=== PATIENT | male | born 1955 | race Caucasian/White ===

== ENCOUNTER 2024-01-06 13:28 | Emergency (ER) | payer OTHER, SELFPAY ==
[2024-01-06 13:30] VITALS: BP 200/100
[2024-01-06 14:00] LABS: % Basophils 0.7 % (0-2); % Eosinophils 4.9 % (0-6); % Immature Granulocytes 0.3 % (0-0.5); % Lymphocytes 24.6 % (20.5-51.1); % Monocytes 9.2 % (1.7-9.3); % Neutrophils 60.3 % (42.2-75.2); Absolute Eosinophils 0.3 10^3/uL (0-0.7); Absolute Lymphocytes 1.5 10^3/uL (1.2-3.4); Absolute Monocytes 0.6 10^3/uL (0.1-0.6); Absolute Neutrophils 3.6 10^3/uL (1.4-6.5); Hematocrit 39.8 % (39.0-52.0); Hemoglobin 14.1 g/dL (13.0-18.0); Mean Corp Hgb Conc. 35.4 g/dL (33.0-37.0); Mean Corpuscular Hgb 30.5 pg (27.0-31.0); Mean Platelet Volume 9.6 fL (7.4-10.4); Nucleated Red Blood Cells % 0 % (-); Platelet Count 201 10^3/uL (130-400); Red Blood Cell Count 4.63 10^6/uL (4.70-6.10)
[2024-01-06 14:11] LABS: ALT (SGPT) 23 U/L (0-50); AST (SGOT) 25 U/L (17-59); Albumin 4.6 g/dl (3.5-5.0); Alkaline Phosphatase 68 U/L (38-126); Blood Urea Nitrogen 12 mg/dl (9-20); Calcium 9.7 mg/dl (8.4-10.2); Carbon Dioxide 27 mmol/L (22-30); Chloride 101 mmol/L (98-107); Glucose 99 mg/dl (70-99); Potassium 4.2 mmol/L (3.5-5.1); Sodium 133 mmol/L (135-145); Total Bilirubin 0.4 mg/dl (0.2-1.3); Total Protein 7.1 g/dl (6.3-8.2); eGFR > 60.00
[2024-01-06 15:39] VITALS: BMI 24.6
[2024-01-06 15:43] VITALS: BP 174/92
[2024-01-06] MEDS: TYLENOL 1000 MG PO (15:55)
--- NOTE | 2024-01-06 15:58 | ED.GENMED ---
History of Present Illness
General
Chief Complaint: Blood Pressure Problem
Source: patient
Exam Limitations: none
Time Seen by Provider: 01/06/24 15:40
Travel History
Have you had any contact with someone who has COVID-19?: No
Do you have any symptoms of coronavirus? Fever > 100 degrees, chills, cough, shortness of breath, sore throat, loss of taste or smell, muscle aches, or headache?: No
History of Present Illness
History of Present Illness:
68-year-old male with history of hypertension presents with elevated blood pressure readings at home as well as a headache. He is medication regimen was recently changed from lisinopril to losartan. He has been taking losartan daily for 4 days
however yesterday was told by the cardiology office to increase his losartan to 50 mg twice a day. He did this yesterday but readings continue to be elevated. Dose this morning and called the office and the office recommended he come here for
evaluation. He notes a dull headache diffusely without associated chest pain vision changes nausea or vomiting. No other complaints at this time
Past History
Past History
ED Past Medical History: None
ED Past Surgical History: Cardiac (cardiac cath 2013: normal)
Social History
Tobacco: Former smoker
Personal:
Living: with family
Employment: Employed (truck technician)
Phy Exam
Physical Exam
Physical Exam:
General: Well-appearing male no acute respiratory distress
HEENT: NC/AT
Heart; RRR, no murmurs
Lungs; CTA bilaterally
Extremities: No cyanosis or edema
Skin: Warm without rashes neurologic: Alert and oriented x 3 no facial asymmetry
Course
Orders/Labs/Results
Orders:
Orders
01/06/24 13:38
Complete Blood Count/With Diff Urgent
Comprehensive Metabolic Panel Urgent
01/06/24 15:52
Acetaminophen [Tylenol] 1,000 mg PO NOW STA
01/06/24 16:20
HydrALAZINE [Apresoline] 10 mg IV NOW STA
01/06/24 17:19
Amlodipine [Norvasc] 5 mg PO NOW STA
01/06/24 17:50
CT Head W/o Iv Contrast Urgent
Comment:
Reason For Exam: headache, elevated BP
01/06/24 19:16
Diphenhydramine [Benadryl] 25 mg IV NOW STA
Prochlorperazine [Compazine] 10 mg IV NOW STA
Abnormal Lab Results
01/06/24
13:38
RBC 4.63 L 10^6/uL
(4.70-6.10)
Sodium 133 L mmol/L
(135-145)
01/06/24 13:38
01/06/24 13:38
Vital Signs
Initial and Last Documented VS:
Initial Vital Signs
Temp Pulse Resp BP Pulse Ox
98.1 F 55 16 200/100 98
01/06/24 13:30 01/06/24 13:30 01/06/24 13:30 01/06/24 13:30 01/06/24 13:30
Last Documented Vital Signs
Temp Pulse Resp BP Pulse Ox
98.1 F 65 18 112/79 99
01/06/24 13:30 01/06/24 17:30 01/06/24 17:30 01/06/24 20:30 01/06/24 19:03
MDM/Problems Addressed
Differential Diagnosis Includes:
Elevated blood pressure readings. Heart rate is normal. Labs reviewed without significant finding. Most recent blood pressure here is 174/92. Will discuss with cardiology to get recommendations moving forward for his blood pressure management.
Tylenol given for his headache
*Critical Care Note
Total Time (30-74mins, 75-104mins- exclusive of procedures): Not Applicable
Update Note
Update Note:
Patient had an ongoing headache in the setting of elevated blood pressure. CT of the head was ordered which was negative for acute finding. Patient given Compazine and Benadryl for ongoing headache. Blood pressure did improve. He was stable for
discharge. He does not describe a sudden onset headache. Do not suspect subarachnoid hemorrhage.
ED Attending Note
-
Portions of this chart may have been created with voice recognition software.� Occasional wrong word or��sound alike� substitutions may have occurred due to the inherent limitations of voice recognition software.
Discharge Plan
Departure
Patient Disposition: Home (Routine Discharge)
Patient with high blood pressure during this ER visit?: Yes
Discharge Problem:
Hypertension
Instructions: High Blood Pressure (DC)
Prescriptions:
New
amlodipine [Norvasc] 5 mg tablet
5 mg PO DAILY Qty: 14 0RF
No Action
aspirin 81 MG tablet,chewable
81 mg PO DAILY
allopurinol 300 MG tablet
300 mg PO DAILY
multivitamin Tablet
1 tab PO DAILY
omega 7-ake-lmv-fish oil [Fish Oil] 1,000 mg (120 mg-180 mg) Capsule
1 cap PO DAILY
ProAir RespiClick 90 mcg/actuation Aerosol Powdr Breath Activated
2 inh INHALATION Q4H PRN (Reason: sob)
lisinopril 20 mg tablet
20 mg PO DAILY Qty: 30 0RF
prednisone 10 mg tablet
40 mg PO DAILY Qty: 16 0RF
Rx Instructions:
take 4 tab for 1 day then 3 tab for 2 days then 2 tab for 2 days then 1 tab for 2 days.
Referrals:
UNKNOWN - PT NOT,INTERVIEWE [Family Provider] -
Butch James DO [Active] - 01/20/24 1:00 pm (You have a cardiology follow up appointment at the [place] office. Please call with questions. )
Activity Restrictions/Additional Instructions:
Continue losartan twice a day. Take Norvasc 5 mg daily. Please follow-up with your visual display associate
Interventions
Interventions:
*Risk Screen - Suicide Last Done: 01/06/24 13:30
*General Assessment Last Done: 01/06/24 13:30
*Neglect/Abuse Screening Last Done: 01/06/24 13:30
ED- Fall Risk Assessment Last Done: 01/06/24 15:39
*ED COVID-19 Vaccine History Last Done: 01/06/24 15:33
*Nursing Disposition Last Done: 01/06/24 20:38
ED- Cardiac Assessment Last Done: 01/06/24 15:39
ED- Neurological Assessment Last Done: 01/06/24 15:39
ED- Pulmonary Assessment Last Done: 01/06/24 15:39
Discharge Date and Time
Discharge Date/Time: 01/06/24 20:43
Print Language: EQUATORIAL GUINEAN
[2024-01-06] MEDS: APRESOLINE 10 MG IV (16:26)
[2024-01-06 16:29] VITALS: BP 167/94
[2024-01-06 17:00] VITALS: BP 172/79
[2024-01-06 17:19] VITALS: BP 142/96
[2024-01-06] MEDS: NORVASC 5 MG PO (17:22)
[2024-01-06] MEDS: BENADRYL 25 MG IV (19:24)
[2024-01-06] MEDS: COMPAZINE 10 MG IV (19:25)
[2024-01-06 20:30] VITALS: BP 112/79
== END 2024-01-06 20:43 | disposition home or self-care (01) ==
LOC: EMR 13:28
PROVIDERS: EMERGENCY PHYSICIAN Emergency Medicine
DX: I10 Essential (primary) hypertension (principal); R51.9 Headache, unspecified; Z87.891 Personal history of nicotine dependence
CPT/HCPCS: 99284; 96374; 96375; 70450; 80053; 85025

== ENCOUNTER → 2024-01-21 17:48 | Outpatient (REF) | payer OTHER, SELFPAY | LOC: RCS 17:48 | PROVIDERS: ATTENDING PHYSICIAN Internal Medicine Cardiovascular Disease; FAMILY PHYSICIAN Family Medicine | DX: I10 Essential (primary) hypertension (principal) | CPT/HCPCS: 93306 ==

== ENCOUNTER 2025-07-25 06:24 | Day surgery (SDC) | payer MEDICARE, SELFPAY | END 2025-07-25 10:15 | disposition home or self-care (01) | LOC: GI 06:24 | PROVIDERS: ATTENDING PHYSICIAN Internal Medicine Gastroenterology | DX: Z12.11 Encounter for screening for malignant neoplasm of colon (principal); K57.30 Diverticulosis of large intestine without perforation or abscess without bleeding; D12.8 Benign neoplasm of rectum; K22.2 Esophageal obstruction; K21.00 Gastro-esophageal reflux disease with esophagitis, without bleeding; K44.9 Diaphragmatic hernia without obstruction or gangrene; K31.7 Polyp of stomach and duodenum; R13.10 Dysphagia, unspecified; Z86.0100 Personal history of colon polyps, unspecified | CPT/HCPCS: 43249; 45385; 88305 ==